=== PATIENT | male | born 1950 | race Caucasian/White ===

== ENCOUNTER 2023-04-30 06:53 | Emergency (ER) | payer OTHER ==
[2023-04-30 07:03] VITALS: TEMP 98.2
[2023-04-30] MEDS ORDERED: MECLIZINE 25 MG TAB PO STA (07:55)
--- NOTE | 2023-04-30 08:01 | ED ---
General Adult HPI - General Chief complaint: Dizziness Stated complaint: Heart Condition, Dizziness,Light Headed Time Seen by Provider: 04/30/23 07:00 Source: patient, RN notes reviewed, old records reviewed Mode of arrival: ambulatory Limitations: no limitations - History of Present Illness Initial comments: This is a 72-year-old male who presents emergency Department complaining that he is off balance. Patient states she needs to hold onto something or fall over. Patient states this started about 2 weeks ago when he fell over backwards had intermittent since when he looks up and down fast he starts to get off balance. Patient denies headache. Patient denies any tinnitus patient denies any difficulty hearing. Patient denies any numbness weakness. Patient denies chest pain palpitations difficulty breathing shortness of breath per patient denies any fever chills per patient denies any neck pain. Patient states he has no abdominal pain but it did make him very nauseous this morning he broke out in a sweat when he became very dizzy. Patient states this morning the dizziness was worse than it has been. - Related Data Previous Rx's Medication Instructions Recorded Meclizine [Antivert] 25 mg PO TID #20 tab 04/30/23 Allergies Allergy/AdvReac Type Severity Reaction Status Date / Time No Known Allergies Allergy Verified 04/30/23 07:00 Review of Systems ROS Statement: Those systems with pertinent positive or pertinent negative responses have been documented in the HPI. ROS Other: All systems not noted in ROS Statement are negative. Past Medical History Past Medical History: Hyperlipidemia, Hypertension, Myocardial Infarction ([place]) History of Any Multi-Drug Resistant Organisms: None Reported Past Surgical History: Heart Catheterization, Heart Catheterization With Stent Past Psychological History: No Psychological Hx Reported Smoking Status: Former smoker Past Alcohol Use History: Rare Past Drug Use History: None Reported General Exam - General Exam Comments Initial Comments: GENERAL: Patient is well-developed and well-nourished. Patient is nontoxic and well- hydrated and is in mild distress. Patient became dizzy when looking up and down. ENT: Neck is soft and supple. No significant lymphadenopathy is noted. Oropharynx is clear. Moist mucous membranes. Neck has full range of motion without eliciting any pain. EYES: The sclera were anicteric and conjunctiva were pink and moist. Extraocular movements were intact and pupils were equal round and reactive to light. Eyelids were unremarkable. PULMONARY: Unlabored respirations. Good breath sounds bilaterally. No audible rales rhonchi or wheezing was noted. CARDIOVASCULAR: There is a regular rate and rhythm without any murmurs gallops or rubs. ABDOMEN: Soft and nontender with normal bowel sounds. SKIN: Skin is clear with no lesions or rashes and otherwise unremarkable. NEUROLOGIC: Patient is alert and oriented x3. Cranial nerves II through XII are grossly intact. Motor and sensory are also intact. Normal speech, volume and content. Symmetrical smile. Finger to nose testing is normal bilaterally MUSCULOSKELETAL: Normal extremities with adequate strength and full range of motion. No lower extremity swelling or edema. No calf tenderness. LYMPHATICS: No significant lymphadenopathy is noted PSYCHIATRIC: Normal psychiatric evaluation. Limitations: no limitations Course Vital Signs 04/30/23 04/30/23 04/30/23 07:00 07:35 07:36 Temperature 98.2 F Pulse Rate 54 L Pulse Rate [ 49 L 53 L Manager Planning ] Respiratory 18 20 18 Rate Blood Pressure 178/89 Blood Pressure 163/84 [Right Arm Sitting] Blood Pressure [Right Arm Standing] Blood Pressure 157/84 [Right Arm Supine] O2 Sat by Pulse 98 97 Oximetry 04/30/23 04/30/23 04/30/23 07:37 07:41 09:32 Temperature Pulse Rate 52 L Pulse Rate [ 64 59 L Manager Planning ] Respiratory 18 16 Rate Blood Pressure 119/73 Blood Pressure [Right Arm Sitting] Blood Pressure 148/86 [Right Arm Standing] Blood Pressure [Right Arm Supine] O2 Sat by Pulse 97 96 Oximetry Medical Decision Making - Medical Decision Making EKG shows a sinus bradycardia 51 bpm TX interval 174 QRS is under QT intervals 4:30 QTC is 408. Patient's EKG shows no ST segment elevation or depression. Was pt. sent in by a medical professional or institution (, PA, [employer], urgent care, hospital, or long term...) When possible be specific @ -No Did you speak to anyone other than the patient for history (EMS, parent, family, police, friend...)? What history was obtained from this source @ -No Did you review nursing and triage notes (agree or disagree)? Why? @ -I reviewed and agree with nursing and triage notes Were old charts reviewed (outside hosp., previous admission, EMS record, old EKG, old radiological studies, urgent care reports/EKG's, long term records)? Report findings @ -No old charts were reviewed Differential Diagnosis (chest pain, altered mental status, abdominal pain women, abdominal pain men, vaginal bleeding, weakness, fever, dyspnea, syncope, headache, dizziness, GI bleed, back pain, seizure, CVA, palpatations, mental health, musculoskeletal)? @ -Differential Dizziness: Benign paroxysmal positional Vertigo, Menieres disease, otitis media, acoustic neuroma, vertebrobasilar insufficiency, cerebellar stroke, encephalitis, hypovolemic, arrhythmia, coronary artery syndrome, anemia, this is not meant to be an all-inclusive list EKG interpreted by me (3pts min.). @ -As above X-rays interpreted by me (1pt min.). @ -Chest x-ray showed no acute abnormality CT interpreted by me (1pt min.). @ -CT of the brain shows no acute abnormality C-spine CT showed no acute abnormality U/S interpreted by me (1pt. min.). @ -None done What testing was considered but not performed or refused? (CT, X-rays, U/S, labs)? Why? @ -None What meds were considered but not given or refused? Why? @ -None Did you discuss the management of the patient with other professionals (professionals i.e. , PA, [employer]TER, lab, RT, psych nurse, sexual assault social worker, stereo compiler, teacher, air crew officer, caser)? Give summary @ -No Was smoking cessation discussed for >3mins.? @ -No Was critical care preformed (if so, how long)? @ -No Were there social determinants of health that impacted care today? How? (Homelessness, low income, unemployed, alcoholism, drug addiction, transportation, low edu. Level, literacy, decrease access to med. care, [facility], rehab)? @ -No Was there de-escalation of care discussed even if they declined (Discuss DNR or withdrawal of care, Hospice)? DNR status @ -No What co-morbidities impacted this encounter? (DM, HTN, Smoking, COPD, CAD, Cancer, CVA, ARF, Chemo, Hep., AIDS, mental health diagnosis, sleep apnea, morbid obesity)? @ -None Was patient admitted / discharged? Hospital course, mention meds given and route, prescriptions, significant lab abnormalities, going to OR and other pertinent info. @ -Patient received Antivert did not seem to help him. Patient then received scopolamine and Valium and he did feel little bit better at this time. Since all lab work and radiological studies were negative patient will go home and use Antivert when necessary Undiagnosed new problem with uncertain prognosis? @ -No Drug Therapy requiring intensive monitoring for toxicity (Heparin, Nitro, Insulin, Cardizem)? @ -No Were any procedures done? @ -No Diagnosis/symptom? @ -Vertigo Acute, or Chronic, or Acute on Chronic? @ -Acute Uncomplicated (without systemic symptoms) or Complicated (systemic symptoms)? @ -Complicated Side effects of treatment? @ -No Exacerbation, Progression, or Severe Exacerbation? @ -No Poses a threat to life or bodily function? How? (Chest pain, [place], [place], pneumonia, PE, COPD, DKA, ARF, appy, cholecystitis, CVA, Diverticulitis, Homicidal, Suicidal, threat to staff... and all critical care pts) @ -No - Lab Data Result diagrams: 04/30/23 07:56 04/30/23 07:56 Lab Results 04/30/23 04/30/23 04/30/23 Range/Units 07:56 07:56 07:56 WBC 5.5 (3.8-10.6) k/uL RBC 4.57 (4.30-5.90) m/uL Hgb 14.7 (13.0-17.5) gm/dL Hct 42.8 (39.0-53.0) % MCV 93.5 (80.0-100.0) fL MCH 32.1 (25.0-35.0) pg MCHC 34.3 (31.0-37.0) g/dL RDW 12.5 (11.5-15.5) % Plt Count 161 (150-450) k/uL MPV 8.1 Neutrophils % 61 % Lymphocytes % 25 % Monocytes % 7 % Eosinophils % 4 % Basophils % 1 % Neutrophils # 3.3 (1.3-7.7) k/uL Lymphocytes # 1.3 (1.0-4.8) k/uL Monocytes # 0.4 (0-1.0) k/uL Eosinophils # 0.2 (0-0.7) k/uL Basophils # 0.0 (0-0.2) k/uL PT 11.9 (9.0-12.0) sec INR 1.1 (<1.2) APTT 24.9 (22.0-30.0) sec Sodium 140 (137-145) mmol/L Potassium 4.2 (3.5-5.1) mmol/L Chloride 105 (98-107) mmol/L Carbon Dioxide 28 (22-30) mmol/L Anion Gap 7 mmol/L BUN 11 (9-20) mg/dL Creatinine 0.67 (0.66-1.25) mg/dL Est GFR (CKD-EPI)AfAm >90 (>60 ml/min/1.73 sqM) Est GFR (CKD-EPI)NonAf >90 (>60 ml/min/1.73 sqM) Glucose 116 H (74-99) mg/dL Calcium 9.0 (8.4-10.2) mg/dL Magnesium 2.1 (1.6-2.3) mg/dL Total Bilirubin 0.9 (0.2-1.3) mg/dL AST 30 (17-59) U/L ALT 34 (4-49) U/L Alkaline Phosphatase 67 (38-126) U/L Troponin I (0.000-0.034) ng/mL Total Protein 6.5 (6.3-8.2) g/dL Albumin 4.1 (3.5-5.0) g/dL 04/30/23 Range/Units 07:56 WBC (3.8-10.6) k/uL RBC (4.30-5.90) m/uL Hgb (13.0-17.5) gm/dL Hct (39.0-53.0) % MCV (80.0-100.0) fL MCH (25.0-35.0) pg MCHC (31.0-37.0) g/dL RDW (11.5-15.5) % Plt Count (150-450) k/uL MPV Neutrophils % % Lymphocytes % % Monocytes % % Eosinophils % % Basophils % % Neutrophils # (1.3-7.7) k/uL Lymphocytes # (1.0-4.8) k/uL Monocytes # (0-1.0) k/uL Eosinophils # (0-0.7) k/uL Basophils # (0-0.2) k/uL PT (9.0-12.0) sec INR (<1.2) APTT (22.0-30.0) sec Sodium (137-145) mmol/L Potassium (3.5-5.1) mmol/L Chloride (98-107) mmol/L Carbon Dioxide (22-30) mmol/L Anion Gap mmol/L BUN (9-20) mg/dL Creatinine (0.66-1.25) mg/dL Est GFR (CKD-EPI)AfAm (>60 ml/min/1.73 sqM) Est GFR (CKD-EPI)NonAf (>60 ml/min/1.73 sqM) Glucose (74-99) mg/dL Calcium (8.4-10.2) mg/dL Magnesium (1.6-2.3) mg/dL Total Bilirubin (0.2-1.3) mg/dL AST (17-59) U/L ALT (4-49) U/L Alkaline Phosphatase (38-126) U/L Troponin I <0.012 (0.000-0.034) ng/mL Total Protein (6.3-8.2) g/dL Albumin (3.5-5.0) g/dL Disposition Clinical Impression: Vertigo Disposition: HOME SELF-CARE Condition: Good Instructions (If sedation given, give patient instructions): Vertigo (ED) Prescriptions: Meclizine [Antivert] 25 mg PO TID #20 tab Is patient prescribed a controlled substance at d/c from ED?: No Referrals: Nonstaff,Physician [REFERRING] - 1-2 days Time of Disposition: 09:59
--- NOTE | 2023-04-30 08:24 | CT ---
EXAMINATION TYPE: CT brain xiomara rodney con DATE OF EXAM: 04/30/2023 COMPARISON: none HISTORY: Dizziness CT DLP: 1671.[address] of the brain was performed. The ventricles, basal cisterns and sulci overlying the cerebral convexities demonstrate mild enlargem ent. There is no evidence for intracranial hemorrhage or sulcal effacement. There is decreased attenuatio n about the periventricular white matter and deep white matter of both cerebral hemispheres, compatib le with chronic small vessel ischemia. No mass effects are seen. If symptoms persist consider MRI. Osseous calvarium is intact. IMPRESSION: 1. Age related atrophic and chronic small vessel ischemic change without acute intracranial process seen at this time. CT Cervical Spine: Unenhanced CT of the cervical spine was performed with bone and soft tissue window settings submitted . Coronal and sagittal reconstruction is obtained. There is normal alignment and prevertebral soft tissues. No evidence for acute cervical fracture . Scattered degenerative disc disease and spondylosis. Biapical scarring. IMPRESSION: 1. No evidence for acute fracture or subluxation of the cervical spine.
--- NOTE | 2023-04-30 08:25 | XR ---
EXAMINATION TYPE: XR chest 2V DATE OF EXAM: 04/30/2023 COMPARISON: NONE HISTORY: Shortness of breath TECHNIQUE: Frontal and lateral views of the chest are obtained. FINDINGS: Scattered senescent parenchymal changes noted. Hyperinflation compatible with COPD. No evidence for infiltrate. No evidence for atelectasis. Heart size is stable. Mediastinal structures are stable and grossly unremarkable. No evidence for hilar prominence. Degenerative changes dorsal spine. IMPRESSION: 1. No evidence for acute pulmonary disease.
[2023-04-30 08:38] LABS: Basophils % (A) 1 %; Eosinophils # (A) 0.2 k/uL (0-0.7); Eosinophils % (A) 4 %; HCT 42.8 % (39.0-53.0); HGB 14.7 gm/dL (13.0-17.5); Lymphocytes # (A) 1.3 k/uL (1.0-4.8); Lymphocytes % (A) 25 %; MCH 32.1 pg (25.0-35.0); MCHC 34.3 g/dL (31.0-37.0); MCV 93.5 fL (80.0-100.0); Mean Platelet Volume 8.1; Monocytes # (A) 0.4 k/uL (0-1.0); Monocytes % (A) 7 %; Neutrophils # (A) 3.3 k/uL (1.3-7.7); Neutrophils % (A) 61 %; Platelet Count 161 k/uL (150-450); RBC 4.57 m/uL (4.30-5.90); RDW 12.5 % (11.5-15.5); WBC 5.5 k/uL (3.8-10.6)
[2023-04-30 08:46] LABS: INR 1.1 (<1.2); Partial Thromboplastin Time 24.9 sec (22.0-30.0); Prothrombin Time 11.9 sec (9.0-12.0)
[2023-04-30 08:53] LABS: ALT 34 U/L (4-49); AST 30 U/L (17-59); African American GFR (CKD) >90 (>60 ml/min/1.73 sqM); Albumin 4.1 g/dL (3.5-5.0); Alkaline Phosphatase 67 U/L (38-126); Anion Gap 7 mmol/L; Blood Urea Nitrogen 11 mg/dL (9-20); Carbon Dioxide 28 mmol/L (22-30); Chloride 105 mmol/L (98-107); Glucose 116 mg/dL (74-99); Magnesium 2.1 mg/dL (1.6-2.3); Non-African American GFR(CKD) >90 (>60 ml/min/1.73 sqM); Potassium 4.2 mmol/L (3.5-5.1); Sodium 140 mmol/L (137-145); Total Bilirubin 0.9 mg/dL (0.2-1.3); Total Protein 6.5 g/dL (6.3-8.2)
[2023-04-30] MEDS ORDERED: SCOPOLAMINE 1 MG/72 HR PATCH TRANSDERM STA (09:20)
[2023-04-30 09:34] VITALS: BP 119/73; PULSE 52; RESP 16
== END 2023-04-30 10:11 | disposition home or self-care (01) ==
LOC: EC 06:53
DX: R42 Dizziness and giddiness (principal); I10 Essential (primary) hypertension; Z87.891 Personal history of nicotine dependence
CPT/HCPCS: 36415; 93005; 80053; 83735; 84484; 85025; 85610; 85730; 71046; 72125; 70450; 99285; 96374; J3360

== ENCOUNTER 2023-07-18 08:00 | Emergency (ER) | payer OTHER, MEDICARE ==
[2023-07-18 08:11] VITALS: BP 155/75; PULSE 65; RESP 20; TEMP 98.2
--- NOTE | 2023-07-18 08:45 | ED ---
Skin/Abscess/FB HPI - General Chief complaint: Skin/Abscess/Foreign Body Stated complaint: bug bite-arm swelling Time Seen by Provider: 07/18/23 08:15 Source: patient, RN notes reviewed Mode of arrival: ambulatory Limitations: no limitations - History of Present Illness Initial comments: 72-year-old male presents emergency Department with chief complaint of left department bite. 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 He states warm to touch states itchy. Patient admits any difficulty swallowing difficulty breathing. He is unsure what bit or stung him and his left arm - Related Data Previous Rx's Medication Instructions Recorded Meclizine [Antivert] 25 mg PO TID #20 tab 04/30/23 Triamcinolone 0.1% Cream [Kenalog 1 applicatio TOPICAL BID #30 gram 07/18/23 0.1% Cream] predniSONE 50 mg PO DAILY #5 tab 07/18/23 Allergies Allergy/AdvReac Type Severity Reaction Status Date / Time No Known Allergies Allergy Verified 07/18/23 08:11 Review of Systems ROS Statement: Those systems with pertinent positive or pertinent negative responses have been documented in the HPI. ROS Other: All systems not noted in ROS Statement are negative. Past Medical History Past Medical History: Hyperlipidemia, Hypertension, Myocardial Infarction ([place]) History of Any Multi-Drug Resistant Organisms: None Reported Past Surgical History: Heart Catheterization, Heart Catheterization With Stent Past Psychological History: No Psychological Hx Reported Smoking Status: Former smoker Past Alcohol Use History: Rare Past Drug Use History: None Reported General Exam Limitations: no limitations General appearance: alert, in no apparent distress Head exam: Present: atraumatic, normocephalic, normal inspection Eye exam: Present: normal appearance, PERRL, EOMI. Absent: scleral icterus, conjunctival injection, periorbital swelling ENT exam: Present: normal exam, mucous membranes moist Neck exam: Present: normal inspection, full ROM. Absent: tenderness, meningismus, lymphadenopathy Respiratory exam: Present: normal lung sounds bilaterally. Absent: respiratory distress, wheezes, rales, rhonchi, stridor Cardiovascular Exam: Present: regular rate, normal rhythm, normal heart sounds. Absent: systolic murmur, diastolic murmur, rubs, gallop, clicks Extremities exam: Present: other (Left forearm there is surrounding erythema small punctate lesion) Course Vital Signs 07/18/23 08:10 Temperature 98.2 F Pulse Rate 65 Respiratory 20 Rate Blood Pressure 155/75 O2 Sat by Pulse 99 Oximetry Medical Decision Making - Medical Decision Making Was pt. sent in by a medical professional or institution (GILLIAN Sampson, MEDICAL ADMINISTRATIVE ASSISTANT, urgent care, hospital, or fci...) When possible be specific @ -No Did you speak to anyone other than the patient for history (EMS, parent, family, police, friend...)? What history was obtained from this source @ -No Did you review nursing and triage notes (agree or disagree)? Why? @ -I reviewed and agree with nursing and triage notes Were old charts reviewed (outside hosp., previous admission, EMS record, old EKG, old radiological studies, urgent care reports/EKG's, fci records)? Report findings @ -No old charts were reviewed Differential Diagnosis (chest pain, altered mental status, abdominal pain women, abdominal pain men, vaginal bleeding, weakness, fever, dyspnea, syncope, headache, dizziness, GI bleed, back pain, seizure, CVA, palpatations, mental health, musculoskeletal)? @ -ALLERGIC reaction, cellulitis EKG interpreted by me (3pts min.). @ -None X-rays interpreted by me (1pt min.). @ -None done CT interpreted by me (1pt min.). @ -None done U/S interpreted by me (1pt. min.). @ -None done What testing was considered but not performed or refused? (CT, X-rays, U/S, labs)? Why? @ -None What meds were considered but not given or refused? Why? @ -None Did you discuss the management of the patient with other professionals (professionals i.e. GILLIAN Sampson, MEDICAL ADMINISTRATIVE ASSISTANT, lab, RT, psych nurse, drug abuse social worker, elastic attacher overlock, teacher, certified juvenile probation officer, housing case manager)? Give summary @ -No Was smoking cessation discussed for >3mins.? @ -No Was critical care preformed (if so, how long)? @ -No Were there social determinants of health that impacted care today? How? (Homelessness, low income, unemployed, alcoholism, drug addiction, transportation, low edu. Level, literacy, decrease access to med. care, shelter, rehab)? @ -No Was there de-escalation of care discussed even if they declined (Discuss DNR or withdrawal of care, Hospice)? DNR status @ -No What co-morbidities impacted this encounter? (DM, HTN, Smoking, COPD, CAD, Cancer, CVA, ARF, Chemo, Hep., AIDS, mental health diagnosis, sleep apnea, morbid obesity)? @ -None Was patient admitted / discharged? Hospital course, mention meds given and route, prescriptions, significant lab abnormalities, going to OR and other pertinent info. @ -Discharge patient has a localized reaction from insect bite patient will be discharged in stable condition symptoms are less than 24 hours old. Patient will continue antihistamines, steroids as directed. Undiagnosed new problem with uncertain prognosis? @ -No Drug Therapy requiring intensive monitoring for toxicity (Heparin, Nitro, Insulin, Cardizem)? @ -No Were any procedures done? @ -No Diagnosis/symptom? @ -Insect bite localized reaction Acute, or Chronic, or Acute on Chronic? @ -Acute Uncomplicated (without systemic symptoms) or Complicated (systemic symptoms)? @ -Uncomplicated Side effects of treatment? @ -No Exacerbation, Progression, or Severe Exacerbation? @ -No Poses a threat to life or bodily function? How? (Chest pain, [place], [place], pneumonia, PE, COPD, DKA, ARF, appy, cholecystitis, CVA, Diverticulitis, Homicidal, Suicidal, threat to staff... and all critical care pts) @ -No Disposition Clinical Impression: Insect bite of forearm with local reaction Disposition: HOME SELF-CARE Condition: Stable Instructions (If sedation given, give patient instructions): Insect Bite or Sting (ED) Additional Instructions: Please return to the Emergency Department if symptoms worsen or any other concerns. Prescriptions: Triamcinolone 0.1% Cream [Kenalog 0.1% Cream] 1 applicatio TOPICAL BID #30 gram predniSONE 50 mg PO DAILY #5 tab Is patient prescribed a controlled substance at d/c from ED?: No Referrals: Kelley Santoro MD [Primary Care Provider] - 1-2 days Time of Disposition: 08:45
== END 2023-07-18 08:55 | disposition home or self-care (01) ==
LOC: EC 08:00
DX: S60.562A Insect bite (nonvenomous) of left hand, initial encounter (principal); I10 Essential (primary) hypertension; I25.2 Old myocardial infarction; Z87.891 Personal history of nicotine dependence; W57.XXXA Bitten or stung by nonvenomous insect and other nonvenomous arthropods, initial encounter
CPT/HCPCS: 99282